=== PATIENT | male | born 1945 | race Caucasian/White ===

== ENCOUNTER 2018-03-24 11:30 | Inpatient (IN) | payer OTHER ==
[~2018-03-24] VITALS: Ht 170.2 cm; Wt 114.3 kg
[2018-03-24] MEDS ORDERED: METFORMIN HCL500 MG PO (14:17)
[2018-03-24] MEDS ORDERED: LIPITOR20 MG PO (14:17)
[2018-03-24] MEDS ORDERED: DICLOFENAC SODIU5 ML OP (14:17)
[2018-03-24] MEDS ORDERED: FINASTERIDE5 MG PO (14:18)
[2018-03-24] MEDS ORDERED: GLIPIZIDE5 MG PO (14:18)
[2018-03-24] MEDS ORDERED: GABAPENTIN100 MG PO (14:19)
[2018-03-24] MEDS ORDERED: LISINOPRIL10 MG PO (14:19)
[2018-03-24] MEDS ORDERED: ZANAFLEX2 M1 PO (14:20)
[2018-04-01] MEDS ORDERED: NEURONTIN800 MG PO (16:30)
[2018-04-01] MEDS ORDERED: COLACE100 MG PO (16:30)
[2018-04-01] MEDS ORDERED: AMOX-CLAV 875-1 EACH PO (16:31)
[2018-04-01] MEDS ORDERED: PERCOCET 5-3251 EACH PO (16:31)
[2018-04-01] MEDS ORDERED: CLONAZEPAM1 MG PO (16:31)
== END 2018-04-02 16:04 | disposition home or self-care (01) | DRG 460 ==
LOC: SURH 03-31 11:30 → O/R 04-01 03:46 → SURG 04-01 03:46 → SURH 04-01 11:30 → SURG 04-01 19:54
PROVIDERS: Orthopaedic Surgery Orthopaedic Surgery of the Spine
PROC: 0SG00AJ Fusion of Lumbar Vertebral Joint with Interbody Fusion Device, Posterior Approach, Anterior Column, Open Approach (ICD-10-PCS; 2018-04-01)
PROC: 0SG30AJ Fusion of Lumbosacral Joint with Interbody Fusion Device, Posterior Approach, Anterior Column, Open Approach (ICD-10-PCS; 2018-04-01)
PROC: 0ST20ZZ Resection of Lumbar Vertebral Disc, Open Approach (ICD-10-PCS; 2018-04-01)
PROC: 0ST40ZZ Resection of Lumbosacral Disc, Open Approach (ICD-10-PCS; 2018-04-01)
PROC: 07DS3ZZ Extraction of Vertebral Bone Marrow, Percutaneous Approach (ICD-10-PCS; 2018-04-01)
PROC: 00NY0ZZ Release Lumbar Spinal Cord, Open Approach (ICD-10-PCS; principal; 2018-04-01 12:30)
DX: M47.26 Other spondylosis with radiculopathy, lumbar region (principal); M47.27 Other spondylosis with radiculopathy, lumbosacral region; M51.17 Intervertebral disc disorders with radiculopathy, lumbosacral region; M48.061 Spinal stenosis, lumbar region without neurogenic claudication; M48.07 Spinal stenosis, lumbosacral region; M43.16 Spondylolisthesis, lumbar region; E11.9 Type 2 diabetes mellitus without complications; I10 Essential (primary) hypertension

== ENCOUNTER 2019-01-27 07:43 | Emergency (ER) | payer OTHER ==
[~2019-01-27] VITALS: Ht 170.2 cm; Wt 111.1 kg
[~2019-01-27 07:43] MED LIST: AMOX-CLAV 875-1 EACH PO; CLONAZEPAM1 MG PO; COLACE100 MG PO; DICLOFENAC SODIU5 ML OP; FINASTERIDE5 MG PO; GABAPENTIN100 MG PO; GLIPIZIDE5 MG PO; LIPITOR20 MG PO; LISINOPRIL10 MG PO; METFORMIN HCL500 MG PO; NEURONTIN800 MG PO; PERCOCET 5-3251 EACH PO; ZANAFLEX2 M1 PO
== END 2019-01-27 16:07 | disposition home or self-care (01) ==
LOC: ER 07:43
DX: M54.5 Low back pain (principal)